=== PATIENT | male | born 1990 | race Two or more races ===

== ENCOUNTER 2024-08-31 16:49 | Emergency (ER) | payer MEDICAID, SELFPAY ==
[2024-08-31 16:52] VITALS: BP 136/97; PULSE 103; RESP 13; TEMP 36.4; O2SAT 100
[2024-08-31 17:22] VITALS: PULSE 104; BMI 29.0
--- NOTE | 2024-08-31 17:25 | EDRME_ITS ---
Rapid Medical Screening Exam RME Arrival date/time: 08/31/24 16:49 Chief Complaint: Alcohol Time Seen by Provider: 08/31/24 17:22 Vital signs: Vital Signs Temperature 97.5 F 08/31/24 16:52 Pulse Rate 103 H 08/31/24 16:52 Respiratory Rate 13 08/31/24 16:52 Blood Pressure 136/97 H 08/31/24 16:52 Pulse Oximetry (%) 100 08/31/24 16:52 Oxygen Delivery Method Oxy Mask 08/31/24 16:52 Oxygen Flow Rate 15 08/31/24 16:52 RME Narrative: Approximately 46 year old a[employer] male presents to the Emergency Department BIBA grossly intoxicated. No trauma. Patient is uncooperative, only offers profanity, and smells of excessive alcohol on breath. No trauma. No further history at this time. I reviewed his case with EMS. He was found in an alley and had very agonal if n ot very slow breathing and received 8 mg of Narcan and appears to awaken from that as well. Initial work-up started and will be seen by additional provider.
--- NOTE | 2024-08-31 17:32 | PC.NURSE ---
LAB AT BEDSIDE FOR BLOOD DRAW
--- NOTE | 2024-08-31 17:46 | PC.NURSE ---
PT SITTING UP IN BED CUSSING AND YELLING AT STAFF. ASKED PT HOW CAN WE HELP HIM. PT THEN FLIPPED THIS NURSE OFF AND STATED FUCK YOU BITCH .
--- NOTE | 2024-08-31 17:50 | PC.NURSE ---
PT SLID DOWN GURNEY AND LAID DOWN ON FLOOR. PT PULLED OUT IV. ASKED PT TO STAND TO GET BACK IN BED. PT AGAIN STATED FUCK YOU BITCH . GURNEY REMOVED AND MATTRESS PLACED ON FLOOR FOR PT SAFETY
[2024-08-31 18:01] LABS: Basophils # (Auto) 0.1 Thou/mm3 (0.0-0.2); Basophils % (Auto) 1 % (0-2.5); Eosinophils # (Auto) 0.1 Thou/mm3 (0.0-0.5); Eosinophils % (Auto) 1 % (0-10); Hematocrit 46.7 % (41.0-53.0); Hemoglobin 15.9 g/dL (13.5-16.0); Immature Granulocytes % (Auto) 0 % (0-0); Immature Granulocytes Auto 0.04 Thou/mm3 (0.00-0.00); Lymphocytes # (Auto) 3.4 Thou/mm3 (1.0-4.8); Lymphocytes % (Auto) 30 % (10-50); Mean Corpuscular Hemoglobin 32.8 pg (25.0-35.0); Mean Corpuscular Volume 96 fL (80-100); Monocytes # (Auto) 0.7 Thou/mm3 (0.0-0.8); Monocytes % (Auto) 6 % (0-12); Neutrophils # (Auto) 6.9 Thou/mm3 (1.8-7.7); Neutrophils % (Auto) 62 % (37-80); Nucleated Red Blood Cell % 0 /100 WBC (0); Platelet Count 203 Thou/mm3 (140-440); RDW Standard Deviation 50.1 fL (35.1-43.9); Red Blood Count 4.85 Miln/mm3 (4.50-5.90); White Blood Count 11.1 Thou/mm3 (3.8-10.6)
--- NOTE | 2024-08-31 18:14 | EDNOTE_ITS ---
ED Alcohol RME/HPI General Chief Complaint: Alcohol Stated Complaint: OD Time Seen by Provider: 08/31/24 17:22 Arrival date/time: 08/31/24 16:49 RME / HPI RME / HPI narrative: Approximately 46-year-old male patient, was brought in by EMS for possible alcohol intoxication or drug overdose. Patient apparently was found in the early, and very agonal, and slow breathing, patient was given 8 mg of Narcan and appears to awaken him. On my initial evaluation patient is alert however grossly intoxicated. No physical trauma noted, patient is not following commands,. Patient is sitting on the ground on my examination. No further history can be extracted at this time. I spoke with patient mom, and mom told me that patient is chronic alcoholic drinker. Review of Systems Review of Systems Narrative Review of Systems: Review of system reviewed and within normal limits except mentioned in HPI ED Exam Narrative Physical exam: VITAL SIGNS: Reviewed. GENERAL APPEARANCE: Alert and good eye contact, does not follows command, smells strongly of alcohol, no acute distress, HEAD AND FACE: Non-traumatic. ENT: PERRL, pink conjunctivitis, eyelid no trauma, Mucous membrane moist. NECK: Supple, nontender, no nuchal rigidity. CHEST: No tenderness, no crepitus, no paradoxical movement, no retractions. LUNGS: Clear, well ventilated, symmetric, no rales, no wheezing, no ronchi, no stridor, good breath sounds bilaterally. HEART: Regular rate, regular rhythm, no murmur, no gallops. ABDOMEN: Soft, positive bowel sounds, nondistended, no guarding, nontender, no rebound, no masses, RECTAL: Deferred. GENITAL: Deferred. NEUROLOGICAL: Gross motor function intact sensory function intact, Appropriate for age. MUSCULOSKELETAL: low back nontender, full range of motion. EXTREMITIES: Nontender, full range of motion. SKIN: Color pink, dry, no rash, no lacerations, no abrasions, no contusions. LYMPHATICS: Deferred. Course Quality Measures none Orders Category Date Time Status 4 HR Behavioral Restraints Q15M Care 08/31/24 18:55 Active Bedside Blood Glucose NOW Care 08/31/24 17:24 Active Alcohol, Blood Medical Stat Lab 08/31/24 17:31 Completed CBC Stat Lab 08/31/24 17:31 Completed CMP [Comprehensive Metabolic Panel] Stat Lab 08/31/24 17:31 Completed Drug Screen,Urine Stat Lab 08/31/24 17:24 Ordered Vital Signs Vital signs: Vital Signs Temperature 97.5 F 08/31/24 16:52 Pulse Rate 103 H 08/31/24 16:52 Respiratory Rate 13 08/31/24 16:52 Blood Pressure 136/97 H 08/31/24 16:52 Pulse Oximetry (%) 100 08/31/24 16:52 Oxygen Delivery Method Oxy Mask 08/31/24 16:52 Oxygen Flow Rate 15 08/31/24 16:52 Discharge Plan Plan Patient Disposition: HOME (Self Care) Disposition Comment: Stable Prescriptions/Referrals Referrals: No Primary/Family,Physician [Primary Care Provider] - In 1 week Problem List Clinical Impression: Alcoholic intoxication Patient/Caregiver Discharge Instructions Discharge Activity: activity as tolerated Education Materials: ED Alcohol Intoxication Additional Instructions: Thank you for the opportunity for serving you today. You are stable for discharged . You are advised to: Follow-up with your PCP in 1 to 2 days Return to ED for worsening of symptoms Increase oral fluids Please stop drinking alcohol Print Language: Kyrgyz Stand Alone Forms: Soraya Award Info., Patient Portal Info Letter PA/FOREIGN LANGUAGE INSTRUCTOR Supervising Physician PA/FOREIGN LANGUAGE INSTRUCTOR Supervising Physician: mD Tenzin Alcohol MDM Narrative MDM Narrative: Patient's alcohol level was noted to be 504. Patient is alert and oriented, talking to to his mom. Patient is stable for discharge home with his mom. Patient data External records reviewed:: None Clinical information provided by:: none Social determinants that could affect healthcare access:: alcohol use Patient has the following chronic illnesses:: None How is presenting disease/condition affected by chronic disease/condition?: exacerbated by Evaluation data The following diagnostics were reviewed and interpreted by me:: lab results and radiology exam(s) Lab and/or radiology exams considered but not ordered:: None Interpretation Summary: Alcohol level was noted to be 504.9. The rest of the labs unremarkable. Medications / Prescriptions Medications or Prescriptions considered but not ordered:: None Medication administrations:: None Consultations Consultation(s) initiated? (list below): No Diagnosis Differential diagnosis alcohol: alcohol ketoacidosis, alcohol withdrawal syndr ome and other (Dehydration) Most likely diagnosis given after review of the tests above:: Alcohol intoxication Admission Indicated Admission indicated?: not indicated Explain why admission is indicated or not indicated:: Stable for discharge Admission Request Was there a request for admission?: No Disposition Plan Disposition Plan: Discharge Discharge Attestation Discharge Attestation: The patient and all family members were given an opportunity to ask questions and understood the discharge instructions. Discharge instructions specifically effects, indications for sooner follow up or return to the emergency department, and the expected course of current diagnosis. Patient condition: Stable
[2024-08-31 18:30] VITALS: BP 133/89; PULSE 117; RESP 16; TEMP 36.3; O2SAT 97
[2024-08-31 18:32] LABS: Alanine Aminotransferase 95 U/L (10-49); Albumin, Serum 4.6 gm/dL (3.5-5.0); Albumin/Globulin Ratio 1.3 (1.2-2.2); Alkaline Phosphatase 206 U/L (46-116); Anion Gap 9 (7-16); Aspartate Amino Transferase 98 U/L (0-34); BUN/Creatinine Ratio 19 Ratio (12-20); Bilirubin,Total 0.6 mg/dL (0.3-1.2); Blood Urea Nitrogen 21 mg/dL (9-23); Calcium 9.1 mg/dL (8.3-10.6); Calcium (Corrected) 9.1 mg/dL (8.5-10.1); Carbon Dioxide 22.6 mMol/L (20.0-31.0); Chloride 106 mMol/L (98-107); Creatinine (Component) 1.1 mg/dL (0.6-1.3); Globulin 3.5 gm/dL (2.3-3.5); Glucose 96 mg/dL (74-106); Osmolality,Calculated 278 (275-295); Potassium 3.8 mMol/L (3.4-5.1); Sodium 138 mMol/L (136-145); Total Protein 8.1 gm/dL (5.7-8.2); eGFR > 60 See Note
[2024-08-31 18:36] LABS: Alcohol, Blood Medical 504.9 mg/dL (0-10.0)
--- NOTE | 2024-08-31 18:55 | PC.NURSE ---
pt began hitting self in face and attempting to hit head on door. hoa grigsby called. pt placed on gurney and restraints applied per doctors orders
[2024-08-31 20:00] VITALS: BP 116/71; PULSE 112; RESP 16; TEMP 36.8; O2SAT 96
[2024-08-31 22:00] VITALS: BP 138/95; PULSE 114; RESP 16; TEMP 36.8; O2SAT 98
== END 2024-08-31 23:05 | disposition home or self-care (01) ==
PROVIDERS: Emergency Provider Emergency Medicine
DX: F10.929 Alcohol use, unspecified with intoxication, unspecified (principal); Y90.8 Blood alcohol level of 240 mg/100 ml or more
CPT/HCPCS: 36415; 80053; 80307; 80320; 85025; 99284; G0480